=== PATIENT | female | born 1945 ===

== ENCOUNTER 2019-12-19 07:00 | Day surgery (SDC) | payer OTHER ==
[~2019-12-19] VITALS: Ht 152.4 cm; Wt 60.8 kg
[~2019-12-19 07:00] MED LIST: METFORMIN HCL500 M3 PO; SYNTHROID100 MCG PO; [UNRECOGNIZED DRUG - OTHER] PO
[2019-12-19] MEDS ORDERED: FOLIC ACID1 MG PO (08:56)
[2019-12-19] MEDS ORDERED: LEVO-T50 MCG PO (08:56)
[2019-12-19] MEDS ORDERED: ZESTRIL20 MG PO (08:56)
== END 2019-12-20 08:00 | disposition home or self-care (01) ==
LOC: CIR.AMB 07:00 → SURH 09:00 → EDBD 10:00 → O/R 10:00 → SURH 10:00 → EDSTATUS 10:00 → O/R 15:20 → OB/GYN 15:20 → CIR.AMB 12-20 08:00 → OB/GYN 12-20 11:15
DX: D25.1 Intramural leiomyoma of uterus (principal); D25.0 Submucous leiomyoma of uterus; D25.2 Subserosal leiomyoma of uterus; N81.2 Incomplete uterovaginal prolapse; N84.0 Polyp of corpus uteri; N72 Inflammatory disease of cervix uteri